=== PATIENT | female | born 1985 | race Caucasian/White ===

== ENCOUNTER 2020-05-09 13:13 | Emergency (ER) | payer BC ==
[2020-05-09] MEDS ORDERED: LORAZEPAM INJ 2 MG/ML VIAL ONE (13:23)
[2020-05-09] MEDS ORDERED: LORAZEPAM INJ 2 MG/ML VIAL IV ONE (13:30)
== END 2020-05-09 14:01 | disposition home or self-care (01) ==
DX: F41.9 Anxiety disorder, unspecified (principal); I10 Essential (primary) hypertension
CPT/HCPCS: 96374; 99283; J2060